=== PATIENT | male | born 1990 | race African-American/Black ===

== ENCOUNTER 2024-04-06 08:01 | Observation (INO) | payer OTHER, SELFPAY ==
[2024-04-06] VITALS (16 sets, daily range): BP systolic 124–142; BP diastolic 74–91; PULSE 62–89; RESP 12–18; TEMP 36.1–37.2; O2SAT 95–98; BMI 33.2; BMI 34.7
--- NOTE | 2024-04-06 08:16 | ED.GENADULT ---
HPI - General Adult General Time Seen by Provider: 08:16 Date Seen: 04/06/24 Chief complaint: Sore Throat Stated complaint: Sore swollen throat Time Seen by Provider: 04/06/24 08:16 Source: patient, RN notes reviewed and old records reviewed Mode of arrival: ambulatory Limitations: no limitations History of Present Illness HPI narrative: This 33-year-old male is coming into the ER with concern worsening sore throat with a history of prior peritonsillar abscess requiring drainage. He started with a sore throat on Wednesday, his throat continues to worsen with pain. He has noted no fevers or chills, no night sweats. No other respiratory symptoms with this. His right side is worse than his left now. It is hurting to swallow. He last ate last night. He denies any chronic health history, states he is otherwise healthy. He is a nonsmoker. No known ill contacts. He has tolerated anesthesia before, no family history of anesthesia complications. He has been using ibuprofen and Tylenol for management of his symptoms. In review of our old records, he went to surgery on 03/24/[address] Fenton for right peritonsillar abscess. He also was subsequently you worked up for obstructive sleep apnea, was determined to be mild and they opted with dental appliance trial. Patient does note that Dr. Fenton did talk to him about tonsillectomy, he just never followed up. Related Data Home Medications ?Medication ?Instructions ?Recorded ?Confirmed No Known Home Medications 04/06/24 04/06/24 Allergies Allergy/AdvReac Type Severity Reaction Status Date / Time No Known Drug Allergies Allergy Verified 04/06/24 08:07 Review of Systems Status of ROS: Reports: 6 or more systems reviewed and unremarkable except as noted in History and below [facility] Social History What is your current living situation?: I presently have a place to live Problems where you live: no known problems Problems where you live details: N/A In the past 12 months, utilities in danger of being shut off: no In past 12 months, lack of transportation kept you from medical appts, meetings, work, or getting things needed for daily living: no In the past 12 mos, have been you worried that your food would run out before you had money to buy more?: never true In the past 12 mos, the food you bought just didn't last and you didn't have money to buy more?: never true Smoking Status: Never smoker How often do you have a drink containing alcohol: never AUDIT-C Alcohol total score: 0 Non-prescribed substance use: denies use How often does anyone, including family, friends and others, physically hurt you: never How often does anyone, including family, friends and others, insult or talk down to you: never How often does anyone, including family, friends and others, threaten you with harm: never How often does anyone, including family, friends and others, scream or curse at you: never Exam Const: Vital Signs, click to edit/add: Vital Signs - 24 hr 04/06/24 08:07 04/06/24 08:30 04/06/24 08:32 Temperature 96.9 F L Pulse Rate 80 Pulse Rate [Pulse Oximeter] 81 Respiratory Rate 14 14 Blood Pressure Blood Pressure [Ri ght Upper Arm] 142/85 H Pulse Oximetry 98 98 98 Oxygen Delivery Me thod Room Air 04/06/24 10:00 04/06/24 11:00 04/06/24 11:39 Temperature Pulse Rate 75 71 66 Pulse Rate [Pulse Oximeter] Respiratory Rate 16 12 12 Blood Pressure 136/87 Blood Pressure [Ri ght Upper Arm] Pulse Oximetry 98 96 97 Oxygen Delivery Me thod 04/06/24 12:03 04/06/24 12:33 04/06/24 13:02 Temperature 99.0 F Pulse Rate 65 62 62 Pulse Rate [Pulse Oximeter] Respiratory Rate 14 14 14 Blood Pressure 127/74 133/80 124/79 Blood Pressure [Ri ght Upper Arm] Pulse Oximetry 98 98 96 Oxygen Delivery Me thod Room Air This 33-year-old male is alert, interactive, no apparent distress. Breathing easily on room air, do not hear any concerning changes to his breathing. Speech is normal, not hoarse. Pupils are equal round reactive, sclera clear. Left TM canal normal. Right tympanic membrane has some scarring inferiorly but otherwise appears normal, neither have any evidence of infection. Symmetrical facial function without swelling, anterior nares normal. Is able to open his mouth but is obviously painful. His tonsils and posterior pharynx are erythematous 2 to 3+ right tonsil, about 2+ left tonsil, can see some exudate on the right it base more posteriorly, both are erythematous. Still has good oral airway. Tongue in oral mucosa otherwise without any concerning change. Neck is supple, does seem to have some adenopathy but he is not tender. Lungs are clear, good air entry, no wheezing or crackles. CV regular rate and rhythm no murmur. Documenting provider has reviewed patient's vital signs: yes Course Course ED Course: This 33-year-old male is coming in with progressively worsening sore throat, right side is hurting worse. Certainly recurrent right peritonsillar abscess needs to be ruled out. He most definitely has tonsillitis. Will get CT of his neck and appropriate labs. He will be monitored here. Have discussed with him that if there is not a significant abscess, sometimes can be managed clinically with IV antibiotics and hospital observation. There is significant abscess, may need OR incision and drainage again. Will look at strep, triple viral swab as well as Monospot as part of our labs. Reevaluation(s) Time of Reevaluation #1: 08:53 Reevaluation #1: Patient's significant other requested ice chips as the patient hasn't been drinking due to symptoms, went to see how his pain was but he is in CT. Reviewed that we needed to be NPO for now, will order IV fluids, first dose of IV antibiotics will be given if viral swab is negative. Time of Reevaluation #2: 09:39 Reevaluation #2: Did review situation with patient. He is going to need IV antibiotics in observation for airway status. He has been given a dose of steroids as well to help with swelling. Have reviewed his strep is positive. He has tonsillitis and an early right peritonsillar abscess which is small and not surgically amenable to drainage at this time. We are unfortunately closed to admissions at this time because of nursing staff shortage due to illness. We are awaiting to talk to our transfer and pumphouse operator to see what will be happening. In the meantime, patient can have ice chips or clears, will also keep him on maintenance IV fluids. Consultations Consultation #1: Reviewed with Dr. Fenton. He did review the images, there is parapharyngeal fat stranding but rather small abscess. He thinks this patient needs to be admitted for IV antibiotics in observation. Not surgical at this point but certainly could become surgical. Also need to monitor his airway. He is aware of given Unasyn, did recommend dose of dexamethasone and 10 mg IV dexamethasone was subsequently ordered. Time: 09:21 Consultation #2: Have spoken with the hospitalist Dr. Bean. With discharges and further arrangements, at this time it is looking like patient will be able to be accommodated here. He will be held in the ER until he can be transferred to the floor. He is currently stable. Time: 10:30 Vital Signs Vital signs: Initial Vital Signs Temperature 96.9 F L 04/06/24 08:07 Temperature Source Temporal Artery Scan 04/06/24 08:07 Pulse Rate 81 04/06/24 08:07 Pulse Rhythm Regular 04/06/24 08:07 Respiratory Rate 14 04/06/24 08:07 Blood Pressure 142/85 H 04/06/24 08:07 Blood Pressure Mean 104 04/06/24 08:07 Blood Pressure Position Sitting 04/06/24 08:07 Pulse Oximetry 98 04/06/24 08:07 Oxygen Delivery Method Room Air 04/06/24 08:07 Vital Signs Temperature 96.9 F L 04/06/24 08:07 Pulse Rate 81 04/06/24 08:07 Respiratory Rate 14 04/06/24 08:07 Blood Pressure 142/85 H 04/06/24 08:07 Pulse Oximetry 98 04/06/24 08:07 Oxygen Delivery Method Room Air 04/06/24 08:07 Temperature 98.2 F 04/06/24 13:32 Pulse Rate 73 04/06/24 13:32 Respiratory Rate 16 04/06/24 13:32 Blood Pressure 131/88 04/06/24 13:32 Pulse Oximetry 97 04/06/24 13:32 Oxygen Delivery Method Room Air 04/06/24 13:32 Medications Administered Medications: Generic Name Dose Route Start Last Admin Trade Name Freq PRN Reason Stop Dose Admin Lactated Ringer's 1,000 mls @ 125 mls/hr 04/06/24 09:40 04/06/24 11:30 Lactated Ringers 1000 Ml IV 125 mls/hr .Q8H JUANA Administration Discontinued Medications Generic Name Dose Route Start Last Admin Trade Name Freq PRN Reason Stop Dose Admin Dexamethasone 10 mg 04/06/24 09:22 04/06/24 09:29 Dexamethasone 10 Mg/Ml Inj IVP 04/06/24 09:23 10 mg ONCE ONE Administration Sodium Chloride 1,000 mls @ 1,000 mls/hr 04/06/24 08:53 04/06/24 11:15 0.9 % Sodium Chloride 1000 Ml IV 04/06/24 09:52 Infused .Q1H JUANA Infusion Ampicillin Sodium/Sulbactam 100 mls @ 200 mls/hr 04/06/24 11:18 04/06/24 12:00 Sodium 3 gm/ Sodium Chloride IVPB 04/06/24 11:19 Infused ONCE ONE Infusion Morphine Sulfate 4 mg 04/06/24 09:14 04/06/24 09:23 Morphine 4 Mg/Ml Inj IVP 04/06/24 09:15 4 mg ONCE ONE Administration Ondansetron HCl 4 mg 04/06/24 09:14 04/06/24 09:23 Ondansetron 2 Mg/Ml Inj IVP 04/06/24 09:15 4 mg ONCE ONE Administration Medical Decision Making Lab Data Lab results reviewed: Yes I reviewed the patient's lab results Labs: Lab Results 04/06/24 04/06/24 Range/Units 08:30 08:32 WBC 10.73 (4.50-11.00) K/uL RBC 5.22 (4.30-5.90) m/uL Hgb 14.3 (13.5-17.5) gm/dL Hct 42.7 (37.0-53.0) % MCV 82 (80-100) fL MCH 27 (26-34) pg MCHC 34 (32-36) gm/dL RDW Coeff of Gurjit 12.7 (11.5-15.5) % Plt Count 231 (140-440) K/uL Neut % (Auto) 72.6 H (42.0-72.0) % Lymph % (Auto) 11.4 L (20-44) % [place] % (Auto) 13.3 H (0.0-11.0) % Eos % (Auto) 2.0 (0.0-7.0) % Baso % (Auto) 0.5 (0.0-3.0) % Neut # (Auto) 7.80 H (1.7-7.0) K/uL Lymph # (Auto) 1.20 (0.90-2.90) K/uL [place] # (Auto) 1.40 H (0.00-0.90) K/UL Eos # (Auto) 0.21 (0.00-0.50) K/uL Baso # (Auto) 0.05 (0.00-0.30) K/uL Abs Immat Gran (auto) 0.02 (0.00-0.30) K/uL Imm/Tot Granulo (auto) 0.2 % Sodium 136 (135-149) mmol/L Potassium 4.0 (3.6-5.1) mmol/L Chloride 104 (96-114) mmol/L Carbon Dioxide 27 (20-32) mmol/L Anion Gap 5 L (7-15) mEq/L BUN 11 (5-24) mg/dL Creatinine 1.1 (0.5-1.5) mg/dL Estimated Creat Clear 95.52 Estimated GFR 91 ml/min Glucose 102 (60-115) mg/dL Lactate 0.8 (0.5-1.9) mmol/L Calcium 9.1 (8.4-10.6) mg/dL Total Bilirubin 0.6 (0.1-1.5) mg/dL AST 57 H (12-35) U/L ALT 58 H (4-50) U/L Alkaline Phosphatase 105 (40-150) U/L C-Reactive Protein 4.6 H (0.5-1.0) mg/dL Total Protein 7.7 (6.0-8.3) g/dL Albumin 4.6 (3.3-5.0) g/dL SARS-CoV-2 (PCR) Negative SARS-CoV-2 (Negative) Monoscreen Negative (Negative) Influenza Type A (PCR) Negative PCR FLU A (Negative) Influenza Type B (PCR) Negative PCR FLU B (Negative) RSV (PCR) Negative PCR RSV (Negative) Group A Strep DNA DETECTED A (Not Detectd) Imaging Data CT- Other: Attestation: I have reviewed the pertinent imaging results. Radiologist's impression: Patient: ALIZA ROTHMAN Facility:?[facility] Patient ID:?[id number] Site Patient ID:?[id number]. Site :?[id number] Study:?CT-ST Neck W/ 99CC [id number] 8:54:28 AM Ordering Physician:Ruth Banegas Final Report: INDICATION: SORE THROAT R TECHNIQUE: CT of the neck with 99 ml Isovue 370 iodinated contrast agent. Coronal and sagittal reconstructions are included. COMPARISON: CT neck 03/23/2019 FINDINGS: Symmetric enlargement and striated enhancement pattern in the bilateral palatine tonsils compatible with acute tonsillitis. There is a 1.3 by 0.6 centimeter region of low attenuation in the lateral aspect of the right palatine tonsil that likely represents early abscess. There is fat stranding in the right parapharyngeal fat pad. Prominent bilateral level 2 lymph nodes likely reactive in etiology. The oral cavity, nasopharyngeal, and hypopharyngeal mucosal spaces are normal. No periapical dental disease. The supraglottic, glottic and infraglottic larynx are normal. The airway including the trachea is normal and is patent. The parotid glands, submandibular and sublingual glands are normal in appearance. The thyroid gland is normal in appearance. The vascular structures opacify normally with contrast material. Rightward deviation of the nasal septum. No suspicious lytic or blastic osseous lesions. Visualized paranasal sinuses and mastoid air cells are clear. Visualized orbital and intracranial contents are normal. Supraclavicular regions, mediastinum and soft tissues of the imaged chest wall are normal. Visualized portions of the upper lungs are clear. IMPRESSION: 1. Symmetric enlargement of the palatine tonsils compatible with acute tonsillitis. There is a 1.3 by 0.6 centimeter region of low attenuation in the lateral aspect of the right palatine tonsil that likely represents early tonsillar abscess. 2. Prominent bilateral level 2 lymph nodes likely reactive in etiology. Please note that all CT scans at this facility use dose modulation, iterative reconstruction, and/or weight-based dosing when appropriate to reduce radiation dose to as low as reasonably achievable. Dictated by Wayne Calzada MD @ 04/06/2024 9:04:23 AM (Electronic Signature) Discharge Plan Discharge Clinical Impression: Acute streptococcal tonsillitis, Recurrent peritonsillar abscess Patient Disposition: Admitted As Observation
--- NOTE | 2024-04-06 08:22 | CRLHL7_ITS ---
For Patients: As a result of the Century Cures Act, medical imaging exams and procedure reports are released immediately into your electronic medical record. You may view this report before your referring provider. If you have questions, please contact your health care provider. INDICATION: SORE THROAT R<L, HX OF ABSCESS TECHNIQUE: CT of the neck with 99 ml Isovue 370 iodinated contrast agent. Coronal and sagittal reconstructions are included. COMPARISON: CT neck 03/23/2019 FINDINGS: Symmetric enlargement and striated enhancement pattern in the bilateral palatine tonsils compatible with acute tonsillitis. There is a 1.3 by 0.6 centimeter region of low attenuation in the lateral aspect of the right palatine tonsil that likely represents early abscess. There is fat stranding in the right parapharyngeal fat pad. Prominent bilateral level 2 lymph nodes likely reactive in etiology. The oral cavity, nasopharyngeal, and hypopharyngeal mucosal spaces are normal. No periapical dental disease. The supraglottic, glottic and infraglottic larynx are normal. The airway including the trachea is normal and is patent. The parotid glands, submandibular and sublingual glands are normal in appearance. The thyroid gland is normal in appearance. The vascular structures opacify normally with contrast material. Rightward deviation of the nasal septum. No suspicious lytic or blastic osseous lesions. Visualized paranasal sinuses and mastoid air cells are clear. Visualized orbital and intracranial contents are normal. Supraclavicular regions, mediastinum and soft tissues of the imaged chest wall are normal. Visualized portions of the upper lungs are clear. IMPRESSION: 1. Symmetric enlargement of the palatine tonsils compatible with acute tonsillitis. There is a 1.3 by 0.6 centimeter region of low attenuation in the lateral aspect of the right palatine tonsil that likely represents early tonsillar abscess. 2. Prominent bilateral level 2 lymph nodes likely reactive in etiology. Please note that all CT scans at this facility use dose modulation, iterative reconstruction, and/or weight-based dosing when appropriate to reduce radiation dose to as low as reasonably achievable. Dictated by Wayne Calzada MD @ 04/06/2024 9:04:23 AM (Electronically Signed)
[2024-04-06 08:39] LABS: Lactate* 0.8 mmol/L (0.5-1.9)
[2024-04-06 08:47] LABS: Basophils Absolute Auto 0.05 K/uL (0.00-0.30); Basophils Percent Auto 0.5 % (0.0-3.0); Eosinophils Absolute Auto 0.21 K/uL (0.00-0.50); Hematocrit 42.7 % (37.0-53.0); Hemoglobin* 14.3 gm/dL (13.5-17.5); Immature Granulocytes Abs Auto 0.02 K/uL (0.00-0.30); Immature Granulocytes Pct Auto 0.2 %; Lymphocytes Percent Auto 11.4 % (20-44); Mean Corpuscular HGB Conc 34 gm/dL (32-36); Mean Corpuscular Hemoglobin 27 pg (26-34); Mean Corpuscular Volume 82 fL (80-100); Monocytes Percent Auto 13.3 % (0.0-11.0); Neutrophils Percent Auto 72.6 % (42.0-72.0); Platelet Count* 231 K/uL (140-440); RDW Coefficient of Variation % 12.7 % (11.5-15.5); Red Blood Count 5.22 m/uL (4.30-5.90); White Blood Count* 10.73 K/uL (4.50-11.00)
[2024-04-06 08:49] LABS: Mono Screen* Negative (Negative)
[2024-04-06 08:56] LABS: Slide Review Reflex No
--- OUTSIDE RECORDS SUMMARY | 2024-04-06 09:02 | XMS_ITS | Clinical Summary ---
Author Organization [facility] Address [address] [place] [address] Care Team Providers Care Gasoline Service Attendant Name Role Phone Found, No Pcp MD Primary Care Provider Unavailab le Source Comments You are receiving this document as you are listed as the primary care provider,follow-up provider, or the patient has been referred to you for consultation.This is in compliance with the Medicare and[facility] E[facility] Incentive Program,which states Providers who transition their patient to another setting of careor provider of care or refers their patient to another provider of care shouldprovide summary care record for each transition of care or referral. [facility] Allergies No known active allergies Social History Tobacco Use Types Packs/Day Years Used Date Smoking Tobacco: Never Assessed Sex and Gender Information Value Date Recorded Sex Assigned at Not on file Gender Identity Not on file Sexual Orientation Not on file Last Filed Vital Signs Vital Sign Reading Time Taken Comments Blood Pressure 149/86 09/27/2020 3:15 PM TIRE CENTER SUPERVISOR Pulse 83 09/27/2020 3:15 PM TIRE CENTER SUPERVISOR Temperature 36.9 ??C (98.4 ??F) 09/27/2020 3:15 PM CS T Respiratory Rate 16 09/27/2020 3:15 PM TIRE CENTER SUPERVISOR Oxygen Saturation 99% 09/27/2020 3:15 PM TIRE CENTER SUPERVISOR Inhaled Oxygen Concentration - - Weight - - Height - - Body Mass Index - - Plan of Treatment Health Maintenance Due Date Last Done Comments Hep C Screening (Preventive Services) 1990 MTM Covered 1990 HIV Screening (Preventive Services) 2006 Adult Preventive Visit 2008 DTaP/Tdap/Td (1 - Tdap) 2009 HepB (1) 2009 COVID-19 Vaccine (2023-2 5 season) 2024 Influenza (#1) 2024 Zoster/Shingles (1 of 2) 2040 HPV Vaccine Aged Out No longer eligi ble based on patient's age to complete this topic HepA Aged Out No longer eligi ble based on patient's age to complete this topic Hib Aged Out No longer eligi ble based on patient's age to complete this topic IPV (Polio) Aged Out No longer eligi ble based on patient's age to complete this topic MCV4 Aged Out No longer eligi ble based on patient's age to complete this topic Pneumococcal Aged Out No longer eligi ble based on patient's age to complete this topic Care Teams Gasoline Service Attendant Relationship Specialty Start Date End Date Found, No Pcp, [address] [place] [address] PCP - General 09/27/20
--- OUTSIDE RECORDS SUMMARY | 2024-04-06 09:02 | XMS_ITS | Clinical Summary ---
Author Organization [facility] Address [place], [place] [address] Care Team Providers Care Hydraulic Miner Blasting Name Role Phone Clinic, No Pcp Or Primary Care Provider Unavaila ble Allergies No known active allergies Medications No known medications Immunizations Name Administration Dates Next Due Influenza, IIV4 05/27/2020,06/03/2019,05/13/2017 Tdap 05/27/2020 Family History Medical History Relation Name Comments Good Health Father Good Health Mother Relation Name Status Comments Father Mother Social History Tobacco Use Types Packs/Day Years Used Date Smoking Tobacco: Never Smokeless Tobacco: Never Alcohol Use Standard Drinks/Week Comments Yes 0 (1 standard drink = 0.6 oz pur e alcohol) occ PHQ-2 Answer Date Recorded PHQ-2 TOTAL SCORE 0 05/27/2020 Social Connections Answer Date Recorded Frequency of Communication with Friends and Fami ly Not on file 07/19/2021 Financial Resource Strain Answer Date R ecorded Difficulty of Paying Living Expenses Not on file 07/19/2021 Difficulty of Paying Living Expenses Not on file 07/19/2021 Sex and Gender Information Value Date Recorded Sex Assigned at Not on file Gender Identity Not on file Sexual Orientation Not on file Obstetrics History Last Filed Vital Signs Vital Sign Reading Time Taken Comments Blood Pressure 127/87 05/27/2020 12:45 PM BILLING CONTROL CLERK Pulse 81 05/27/2020 12:45 PM BILLING CONTROL CLERK Temperature 36.9 ??C (98.4 ??F) 05/27/2020 1:06 PM CS T Respiratory Rate 16 03/16/2016 3:52 PM CDT Oxygen Saturation 98% 05/27/2020 12:45 PM BILLING CONTROL CLERK Inhaled Oxygen Concentration - - Weight 99.5 kg (219 lb 4.8 oz) 05/27/2020 12:45 PM BILLING CONTROL CLERK Height 179.1 cm (5' 10.5) 05/27/2020 12:[address] Body Mass Index 31.02 05/27/2020 12:45 PM BILLING CONTROL CLERK Plan of Treatment Health Maintenance Due Date Last Done Comments HIV for age 15-65 2005 Hepatitis C screening for ag e 18-79 2008 BMI (ht and wt on same day) for age 18+ 05/27/2021 05/27/2020, 03/16/2016 Depression screening for age 12+ 05/27/2021 05/27/2020 COVID-19 vaccine series (2022- season) 2024 09/17/2020 Influenza for age 9-49 03/19/2024 0, 06/03/2019, 05/13/2017 Tetanus booster 05/27/2030 05/27/2020 Tdap Completed 05/27/2020 Pneumococcal series for age 6-64 Aged Out No longer eligible b ased on patient's age to complete this topic Care Teams Hydraulic Miner Blasting Relationship Specialty Start Date End Date Clinic, No Pcp Or . PCP - General 05/27/20
[2024-04-06 09:04] LABS: Chloride* 104 mmol/L (96-114); Sodium* 136 mmol/L (135-149)
[2024-04-06] MEDS: 0.9 % SODIUM CHLORIDE 1000 ml 1,000 ML IV (09:04)
[2024-04-06 09:05] LABS: Albumin* 4.6 g/dL (3.3-5.0)
[2024-04-06 09:08] LABS: Alkaline Phosphatase* 105 U/L (40-150); Anion Gap 5 mEq/L (7-15); Aspartate Amino Transferase* 57 U/L (12-35); Bilirubin Total* 0.6 mg/dL (0.1-1.5); Carbon Dioxide* 27 mmol/L (20-32); Creatinine* 1.1 mg/dL (0.5-1.5); Est. Creatinine Clearance* 95.52; Estimated Glomerular Filt Rate 91 ml/min; Total Protein* 7.7 g/dL (6.0-8.3)
[2024-04-06 09:09] LABS: Alanine Aminotransferase* 58 U/L (4-50); Blood Urea Nitrogen* 11 mg/dL (5-24); Calcium* 9.1 mg/dL (8.4-10.6); Glucose* 102 mg/dL (60-115)
[2024-04-06 09:11] LABS: C Reactive Protein* 4.6 mg/dL (0.5-1.0)
[2024-04-06 09:18] LABS: Strep A DNA Probe* DETECTED (Not Detectd)
[2024-04-06] MEDS: MORPHINE 4 MG/ML INJ IVP (09:23)
[2024-04-06] MEDS: ONDANSETRON 2 MG/ML inj 4 MG IVP (09:23)
[2024-04-06] MEDS: dexAMETHasone 10 MG/ML inj IVP (09:29)
[2024-04-06 09:34] LABS: PCR FLU A Negative PCR FLU A (Negative); PCR FLU B Negative PCR FLU B (Negative); PCR RSV Negative PCR RSV (Negative); SARS PCR* Negative SARS-CoV-2 (Negative)
[2024-04-06] MEDS: LACTATED RINGERS 1000 ML 1,000 ML 125 ML IV ×2 (11:30→19:51)
[2024-04-06] MEDS: AMPICILLIN/SULBACTAM 3 GM in 0.9 % SODIUM CHLORIDE Mini-bag 100 ML IVPB ×3 (11:30→23:17)
--- NOTE | 2024-04-06 15:21 | PM.IMHP1 ---
Hospitalist- H&P: HPI History of Present Illness Date Seen: 04/06/24 Chief complaint: Sore swollen throat Narrative: Andrea Levy is a 33 year old male with a 5 day history of worsening right-sided sore throat. Prior to this he was previously healthy. No known ill exposures. He has not had a fever. No other respiratory illness including cough or congestion. Pain is bad enough he is now having difficulty swallowing. No difficulty with breathing. He reports about 4 years ago he had peritonsillar abscess requiring surgical drainage by Dr. Fenton. No problems in the intervening time. Review of Systems Narrative: Reports no other health problems other than his worsening sore throat. [facility] Surgical History (Updated 04/06/24 @ 15:23 by Aldair Bean MD) H/O peritonsillar abscess drainage ?Z98.890 - Other specified postprocedural states (ICD-10) H/O arthroscopy of right knee ?Z98.890 - Other specified postprocedural states (ICD-10) Social History (Updated 04/06/24 @ 15:25 by Aldair Bean MD) Narrative: He is here with his . He lives in [facility]. He works as a [employer]. He does not smoke. He occasionally drinks alcohol, 1 or 2 drinks on weekends. No recreational drug use What is your current living situation?: I presently have a place to live Problems where you live: no known problems Problems where you live details: N/A In the past 12 months, utilities in danger of being shut off: no In past 12 months, lack of transportation kept you from medical appts, meetings, work, or getting things needed for daily living: no In the past 12 mos, have been you worried that your food would run out before you had money to buy more?: never true In the past 12 mos, the food you bought just didn't last and you didn't have money to buy more?: never true Smoking Status: Never smoker How often do you have a drink containing alcohol: never AUDIT-C Alcohol total score: 0 Non-prescribed substance use: denies use How often does anyone, including family, friends and others, physically hurt you: never How often does anyone, including family, friends and others, insult or talk down to you: never How often does anyone, including family, friends and others, threaten you with harm: never How often does anyone, including family, friends and others, scream or curse at you: never Meds Home Medications and Allergies Home Medications ?Medication ?Instructions ?Recorded ?Confirmed ?Type multivitamin (Daily Multi-Vitamin 1 tab PO DAILY 04/06/24 04/06/24 History tablet) Allergies Allergy/AdvReac Type Severity Reaction Status Date / Time No Known Drug Allergies Allergy Verified 04/06/24 08:07 Exam Narrative: Exam Narrative: He is alert and appears in no distress. Voice is normal. There is no stridor. Oropharynx with moderately prominent right tonsillar swelling, erythema and exudate. Minimal erythema and swelling on the left. Adequate airway. Neck is supple with right anterior node tenderness but no significant adenopathy. No stridor. Respirations are clear to auscultation. Cardiovascular: S1, S2, regular rate and rhythm. Abdomen is soft without tenderness or mass. Skin is without rash. Intact peripheral pulses. No edema. Good peripheral perfusion. Const: Vital Signs, click to edit/add: Vital Signs - 24 hr 04/06/24 08:07 04/06/24 08:30 04/06/24 08:32 Temperature 96.9 F L Pulse Rate 80 Pulse Rate [Pulse Oximeter] 81 Pulse Rate [Right Radial] Respiratory Rate 14 14 Blood Pressure Blood Pressure [Ri ght Arm] Blood Pressure [Ri ght Upper Arm] 142/85 H Pulse Oximetry 98 98 98 Oxygen Delivery Me thod Room Air 04/06/24 10:00 04/06/24 11:00 04/06/24 11:39 Temperature Pulse Rate 75 71 66 Pulse Rate [Pulse Oximeter] Pulse Rate [Right Radial] Respiratory Rate 16 12 12 Blood Pressure 136/87 Blood Pressure [Ri ght Arm] Blood Pressure [Ri ght Upper Arm] Pulse Oximetry 98 96 97 Oxygen Delivery Me thod 04/06/24 12:03 04/06/24 12:33 04/06/24 13:02 Temperature 99.0 F Pulse Rate 65 62 62 Pulse Rate [Pulse Oximeter] Pulse Rate [Right Radial] Respiratory Rate 14 14 14 Blood Pressure 127/74 133/80 124/79 Blood Pressure [Ri ght Arm] Blood Pressure [Ri ght Upper Arm] Pulse Oximetry 98 98 96 Oxygen Delivery Me thod Room Air 04/06/24 13:30 04/06/24 13:32 Temperature 99.0 F 98.2 F Pulse Rate Pulse Rate [Pulse Oximeter] 81 Pulse Rate [Right Radial] 73 Respiratory Rate 14 16 Blood Pressure Blood Pressure [Ri ght Arm] 131/88 Blood Pressure [Ri ght Upper Arm] 142/85 H Pulse Oximetry 97 Oxygen Delivery Me thod Room Air Documenting provider has reviewed patient's vital signs: yes Hospitalist - H&P: Result Labs Labs: Short CBC 04/06/24 Range/Units 08:32 WBC 10.73 (4.50-11.00) K/uL Hgb 14.3 (13.5-17.5) gm/dL Hct 42.7 (37.0-53.0) % Plt Count 231 (140-440) K/uL BMP 04/06/24 08:32 Sodium 136 Potassium 4.0 Chloride 104 Carbon Dioxide 27 BUN 11 Creatinine 1.1 Glucose 102 Calcium 9.1 Liver Function 04/06/24 Range/Units 08:32 Total Bilirubin 0.6 (0.1-1.5) mg/dL AST 57 H (12-35) U/L ALT 58 H (4-50) U/L Alkaline Phosphatase 105 (40-150) U/L Albumin 4.6 (3.3-5.0) g/dL Assessment and Plan Assessment and plan (1) Recurrent peritonsillar abscess: Problem comment: Medical management with IV antibiotics and pain medication. Surgical intervention if getting worse Status: Acute (2) Acute streptococcal tonsillitis: Problem comment: Antibiotics Status: Acute Plan Patient is admitted the hospital for IV antibiotics and monitoring of peritonsillar abscess. If clinically improving will discharge with medical management. If getting worse will consult surgery for surgical intervention Total Time Spent Total Time Spent: Total time spent today is 60 minutes in evaluation and management
[2024-04-06] MEDS: IBUPROFEN 100 MG/5 ML SUSP 600 MG PO (16:05)
--- NOTE | 2024-04-06 21:37 | PC.NURSE ---
End of Shift ([id number]) Patient pleasant and cooperative, A&O. VSS, afebrile. Patient reports pain in his throat this shift managed with PRN medication, see MAR. Declined dinner this evening. Up independently in room.
[2024-04-07 03:00] VITALS: BP 122/69; PULSE 63; RESP 18; TEMP 36.3; O2SAT 97
[2024-04-07] MEDS: LACTATED RINGERS 1000 ML 1,000 ML 125 ML IV (03:47)
[2024-04-07] MEDS: AMPICILLIN/SULBACTAM 3 GM in 0.9 % SODIUM CHLORIDE Mini-bag 100 ML IVPB ×2 (05:29→11:17)
--- NOTE | 2024-04-07 06:34 | PC.NURSE ---
End of shift [id number]: Pt has been A&O, afebrile and VSS overnight. Denies having any pain, nausea or lightheadedness. PIV in left AC infusing LR @ 125 mL/hr along with scheduled IV abx. Pt is tolerating full liquid diet. Right side oropharynx erythematous & edematous. He is up ad natalee independently in the room with a steady gait. He slept well in between cares. ?
[2024-04-07 07:45] VITALS: BP 126/81; PULSE 73; PULSE 79; RESP 18; TEMP 37.1; O2SAT 96
[2024-04-07 11:04] VITALS: BP 127/87; PULSE 76; RESP 18; TEMP 37.3; O2SAT 96
--- NOTE | 2024-04-07 12:37 | PC.NURSE ---
Discharge. pt has been very pleasant. no pain but he has some Throat discomfort. Pt has been A&Ox4 IV is in the left AC, LR @ 125 ml full liquid diet was advanced to a regular diet and tolerated it well, . e is up ad natalee independently. went over discharge with pt and . went over medication, appointment, instructions and education/ SL was d/c intact. he left with all belongings and paperwork. he walked out.
--- NOTE | 2024-04-07 13:48 | P.DS_ITS ---
DS: Providers Provider Date Seen: 04/07/24 Date of admission: 04/06/24 13:22 Primary care physician: Not a Local Provider Admitting Clinician: Aldair Bean MD Attending Physician on discharge: Aldair Bean MD Date of Discharge: 04/07/24 DS: Diagnosis Discharge Diagnosis (1) Recurrent peritonsillar abscess: Status: Acute Problem details: Medical management with IV Unasyn and pain medication. Surgical intervention if getting worse. Much better on day of discharge. Discharged on Augmentin (2) Acute streptococcal tonsillitis: Status: Acute Problem details: Antibiotics DS: Summary Hospital Course Hospital Course: Andrea Levy is a 33 year old male with a 5 day history of worsening right- sided sore throat. Prior to this he was previously healthy. No known ill exposures. He has not had a fever. No other respiratory illness including cough or congestion. Pain is bad enough he is now having difficulty swallowing. No difficulty with breathing. He reports about 4 years ago he had peritonsillar abscess requiring surgical drainage by Dr. Fenton. No problems in the intervening time. 04/07/2024: Patient feels much better today. He reports minimal discomfort with swallowing. No trouble breathing. He slept well. He ate a regular breakfast without significant trouble. No fever Time Spent with Patient Time attestation: Total time spent providing and/or coordinating discharge services: 35 minutes Time spent: Greater than 30 minutes Exam Narrative: Exam Narrative: He is alert and appears in no distress. Speech is normal. Neck is supple. He has minimal tenderness in the anterior cervical chain below the angle of mandible. No marked swelling or adenopathy. No stridor. Oropharynx without trismus. He still has moderate swelling of the right tonsil but less exudate and erythema. Const: Vital Signs, click to edit/add: Vital Signs - 24 hr 04/06/24 15:43 04/06/24 15:46 04/06/24 15:48 Temperature 98.5 F Pulse Rate [Pulse Oximeter] 75 75 Pulse Rate [Right Radial] Respiratory Rate 18 18 18 Blood Pressure [Ri ght Arm] 127/79 Pulse Oximetry 95 95 Oxygen Delivery Me thod Room Air Room Air 04/06/24 20:11 04/06/24 23:54 04/06/24 23:54 Temperature 98.2 F 98.2 F Pulse Rate [Pulse Oximeter] 89 74 74 Pulse Rate [Right Radial] Respiratory Rate 18 18 18 Blood Pressure [Ri ght Arm] 140/82 H 139/91 H Pulse Oximetry 95 96 Oxygen Delivery Me thod Room Air Room Air 04/07/24 03:00 04/07/24 07:45 04/07/24 07:45 Temperature 97.3 F L 98.7 F Pulse Rate [Pulse Oximeter] 63 79 79 Pulse Rate [Right Radial] 73 Respiratory Rate 18 18 18 Blood Pressure [Ri ght Arm] 122/69 126/81 Pulse Oximetry 97 96 Oxygen Delivery Me thod Room Air Room Air 04/07/24 11:04 Temperature 99.2 F Pulse Rate [Pulse Oximeter] 76 Pulse Rate [Right Radial] 76 Respiratory Rate 18 Blood Pressure [Ri ght Arm] 127/87 Pulse Oximetry 96 Oxygen Delivery Me thod Room Air Documenting provider has reviewed patient's vital signs: yes DS: Data Imaging CT soft tissue neck: Radiologist's impression: INDICATION: SORE THROAT R<L, HX OF ABSCESS TECHNIQUE: CT of the neck with 99 ml Isovue 370 iodinated contrast agent. Coronal and sagittal reconstructions are included. COMPARISON: CT neck 03/23/2019 FINDINGS: Symmetric enlargement and striated enhancement pattern in the bilateral palatine tonsils compatible with acute tonsillitis. There is a 1.3 by 0.6 centimeter region of low attenuation in the lateral aspect of the right palatine tonsil that likely represents early abscess. There is fat stranding in the right parapharyngeal fat pad. Prominent bilateral level 2 lymph nodes likely reactive in etiology. The oral cavity, nasopharyngeal, and hypopharyngeal mucosal spaces are normal. No periapical dental disease. The supraglottic, glottic and infraglottic larynx are normal. The airway including the trachea is normal and is patent. The parotid glands, submandibular and sublingual glands are normal in appearance. The thyroid gland is normal in appearance. The vascular structures opacify normally with contrast material. Rightward deviation of the nasal septum. No suspicious lytic or blastic osseous lesions. Visualized paranasal sinuses and mastoid air cells are clear. Visualized orbital and intracranial contents are normal. Supraclavicular regions, mediastinum and soft tissues of the imaged chest wall are normal. Visualized portions of the upper lungs are clear. IMPRESSION: 1. Symmetric enlargement of the palatine tonsils compatible with acute tonsillitis. There is a 1.3 by 0.6 centimeter region of low attenuation in the lateral aspect of the right palatine tonsil that likely represents early tonsillar abscess. 2. Prominent bilateral level 2 lymph nodes likely reactive in etiology. Discharge Plan Discharge Disposition: Home, Self-Care Date of Admission: 04/06/24 13:22 Attending Provider on Discharge: Aldair Bean Primary Care Provider: Provider,Not a Local Condition: Improved Anticipated Discharge Date/Time: 04/07/24 12:00 Discharge Medications: New amoxicillin-pot clavulanate 875-125 mg tablet 1 tab PO BID Qty: 18 0RF Continued multivitamin [Daily Multi-Vitamin] Tablet 1 tab PO DAILY Discharge Orders: Discharge Order (Routine); Ordered 04/07/24 Ordered By: Aldair Bean Patient Education: Amoxicillin/Clavulanate Potassium (By mouth), Tonsillitis (DC) Additional Instructions: If you are getting worse with increased pain, trouble swallowing or fever, return to the emergency room for re-evaluation Activity Level: Activity as Tolerated Discharge Diet: Regular Follow Up Appointments: Provider,Not a Local [Primary Care Provider] - Forms: [employer] Info Instructions
== END 2024-04-07 12:07 | disposition home or self-care (01) ==
LOC: ED 10:31 → MEDSURG 13:27
PROVIDERS: Admitting Provider Family Medicine; Emergency Provider Family Medicine; Visit Provider Family Medicine
DX: J36 Peritonsillar abscess (principal)
CPT/HCPCS: 36415; 36430; 70491; 80053; 83605; 85025; 86140; 86308; 87631; 87651; 94761; 96361; 96365; 96366; 96375; 99284; 99285; A9270; G0378; J0295; J1100; J2270; J2405; J7030; J7120; Q9967

== ENCOUNTER 2024-06-09 10:28 | Day surgery (SDC) | payer OTHER, SELFPAY ==
[2024-06-09] VITALS (14 sets, daily range): BP systolic 132–190; BP diastolic 88–133; PULSE 61–90; RESP 13–21; TEMP 36.7–37; O2SAT 95–100; BMI 36.3
--- OUTSIDE RECORDS SUMMARY | 2024-06-09 10:32 | XMS_ITS | Data Portability ---
Author Organization [facility], [facility] Address [address] [place] [address] Care Team Providers Care [employer] Flight Mechanic Name Role Phone DAVEYBERENICE Hedrick Referring Provider [phone] Assessment Encounter Date Assessment Date Assessment LastModified by Organization Details LastModified Time 06/06/2021 06/06/2021 After a thorough discussion of the preparation, procedure details, risks, possible complications, post-operative care and instructions the patient wishes to proceed with vasectomy. He was given an opportunity to ask questions related to the above information. [email or web address] Not available 06/05/2021 09:40:09 Plan of Treatment Reminders Order Date Submit Date Provider Last Modified By Organization Details Last Modified Time Details Appointments None recorded. Lab None recorded. Referral None recorded. Procedures None recorded. Surgeries None recorded. Imaging None recorded. Medication Orders cephalexin 500 mg capsule 2020 [facility]21 [id number], [address] [place] [address], [phone], 09:56:48 Patient TargetsNo targets recorded. Patient Instructions Encounter Date Encounter Id Patient Instructions Last Modified By Organization Details Last Modified Time 06/06/2021 [id number] SURGICAL ELECTIV E STERILIZATION: VASECTOMY WHAT IS A VASECTOMY? A vasectomy makes a man sterile by obstructing the flow of sperm through the vas deferens. A small puncture in the scrotum is used to isolate a section of the vas deferens. A small portion of the vas deferens is then removed and the vas is occluded. The procedure is typically performed in the office using a local anesthesia, but can be performed at a surgery center under sedation. (Please check with your insurance carrier if you would like sedation, to make sure you qualify.) After a vasectomy it takes at least 3 months to completely clear your ejaculation of sperm. We provide you with a container for a semen analysis to prove that yourvasectomy has been successful (Note: some men have to leave multiple samples to show that their vasectomy has been successful. Please see the [facility] Post-Vasectomy Instruction Sheet for additional details). We believe that proving your sterility is your responsibility. We try to make it easy for you, but you are responsible for collecting and bringing your sample to our office. You must continue to use other forms of contraception until you prove that your vasectomy has been successful. SCHEDULING A VASECTOMY Scheduling a vasectomy is easy. It will consist of a brief office visit with a surgeon to discuss the risks of the procedure and so the surgeon can make sure that you are a good candidate for a vasectomy. Once you are medically cleared and questions are answered, another appointment is made for the actual procedure. POSSIBLE RISKS FROM HAVING A VASECTOMY 1. Recanalization: This word means spontaneous reconnection of the vas deferens and failure of the vasectomy. This complication is rare. Although it can occur at any time, even years later, it most often occurs during the first 6-8 weeks after the procedure. We can t say this enough: Patients must prove that they are sterile by providing semen samples void of sperm before discontinuing other forms of control. 2. : Believe it or not, there are patients who prove they have no sperm in their semen but still father a child. The rate of after a successful vasectomy reported in literature is 0.05% or less. 3. Infection: Uncommon, and usually mild. Most often it can be treated with antibiotics. 4. Bleeding: Usually mild, although a large blood clot called a hematoma can develop and typically resolve by itself. 5. Pain: Pain usually lasts several days and goes away. Pain that lasts months to years is rare. 6. Sperm Granuloma: This is a small scar that sometimes forms where the vas is cut and is not harmful. 7. Sperm Antibodies: These antibodies help the body get rid of the sperm. They are not harmful to you but may make it difficult to achieve if you have the vasectomy reversed. PREPARING FOR A VASECTOMY How to choose a good appointment time: Carve a few days out of your busy schedule when you can recover. Too many men try to go back to normal activities too soon. Men with desk-jobs can usually go back to work after a weekend; men who do heavy labor may want to have a full week set aside to recover. Most men won t need that sort of time, but for those who do it is nice to have. Seven days before the procedure: Stop taking aspirin, ibuprofen (Advil, Motrin), vitamin E, herbal supplements, or any medication that you take to thin the blood. If you are on Warfarin, Coumadin or Plavix, call you physician regarding these medications. Make sure you have some tight underwear or a jock strap to bring to the vasectomy appointment. Wearing supportive underwear for a few days rather than boxers helps to prevent swelling. Buy some triple antibiotic ointment (Bacitracin, Neosporin, generic) to put on the puncture sites. You won t need a big tube because the incisions are small and you only need to put it on for a few days. The day of the procedure: Eat normally unless you are being anesthetized. Please shower or wash the scrotum before the procedure to help reduce the risk of infection. Remember to bring the supportive underwear or jock strap so you can wear it home. Having someone drive you is only mandatory if you are being sedated. AFTER YOUR VASECTOMY Go home. Relax. Show this sentence to your : Plan on being lazy for at least [address] an ice pack on the scrotum (one hour on/one hour off-do not put ice directly on the skin) to minimize swelling. You may shower after 24 hours. Be careful in the shower if you are taking any new prescription medication for the vasectomy, such as narcotic pain medication. Do not lift anything over 20 pounds for seven days. After that, use your judgment. A good rule of thumb: if you are wondering if you should, you probably shouldn t . Resume normal activity slowly. Wait at least seven days before resuming sexual activity, preferably two weeks. It is normal to have discomfort with sex initially. Don t worry, that gets better quickly. It takes some men a few weeks to start feeling totally normal, so be patient. Don t worry about calling with questions if you don t think you are healing well enough; most of the time you just need a little reassurance. Issues that require a phone call are: fever above 100.5; bleeding that doesn t stop for a couple hours after the procedure; progressive scrotal swelling; incision drainage; pain that cannot be controlled with pain medication. A FINAL REMINDER You are not sterile until your semen is completely free of sperm. You must take the responsibility to bring samples into our office to prove your vasectomy is a success. If you follow the instructions above it should be. [email or web address] Not available 06/05/2021 09:40:09 Reason for Referral None Reported. Procedures Surgical History Date Name Laterality Status Provider Name and Address Organization Details Recorded Time 08/27/2021 Vasectomy cancelled Kayley Connell [place] - [facility] 08/26/2021 11:06:00 Imaging Results None recorded. Procedure Notes None recorded. Medical Equipment None Reported. Allergies No known drug allergies Medications Name Sig Start Date Stop Date Status Note LastModified by Organization Details LastModified Time neomycin-caroline ymyxin-hydro rah 3.5 mg/mL-10,000 unit/mL-1 % ear solution INSTILL 3 DROPS IN BOTH EARS THREE TIMES DAILY FOR 3 DAYS active Not Available Not Available No t Available cephalexin 500 mg capsule Take 1 capsule by oral route as directed for 1 day. active Not Available Not Available N ot Available Vitals Date Recorded Body height Body mass index (BMI) Body weight Provider Name and Address Organization Details Last Updated DateTime 06/06/2021 177.8 cm 30.8 kg/m2 49631.4755 140566 g Not Available Health Note 06/06/2021 09:28:30 Social History Question Answer Notes LastModified by Organizat ion Details LastModified Time Tobacco Smoking Status Never Smoker Not Available Health Note 06/02/2021 10:06:42 What Is Your Level Of Alcohol Consumption? Occasional [email or web address] Information not available 06/02/2021 What Is Your Level Of Caffeine Consumption? Occasional [email or web address] Information not available 06/02/2021 How Much Tobacco Do You Chew? None [email or web address] Information not available 06/02/2021 Do You Or Have You Ever Used E-cigarettes Or Vape? Never Used Electronic Cigarettes [email or web address] Information not available 06/02/2021 Recreational Drug Use No [email or web address] Information not available 06/02/2021 What Was The Date Of Your Most Recent Tobacco Screening? 06/06/2021 [email or web address] Information not available 06/06/2021 Do You Or Have You Ever Used Smokeless Tobacco? Never Used Smokeless Tobacco [email or web address] Information not available 06/02/2021 Do You Or Have You Ever Used Any Other Forms Of Tobacco Or Nicotine? No [email or web address] Information not available 06/06/2021 Sex: Male Functional Status None recorded. Mental Status None recorded. Family History Nothing Reported. Medical History Condition Response Sexually Transmitted Infection N Diabetes N Bleeding Disorder N High Blood Pressure N Kidney Stones N Cancer N Lung Disease N Depression N High Cholesterol N GERD/Acid Reflux N Heart Disease N Past Encounters Encounter ID Performer Location Encounter Start Date Encounter Closed Date Diagnosis/Indication Diagnosis SNOMED-CT Code Diagnosis ICD10 Code [id number] Italo Minaya MD [facility] [address] [address] 06/06/2021 09:28:25 06/06/2021 10:15:47 Contraception care management 782831393 Z30.09 Health Concerns Section Related Observation LastModified by Organization Detai ls LastModified Time None Recorded Concern Status LastModified by Organization Details LastModified Time None Recorded Advance Directives Directive None Recorded Payers Encounter Date Sequence Insurance Name Policy Number Policy Reagan Covered Member ID Reagan Member ID Guarantor Name 06/06/2021 1 [employer] - OPEN ACCESS CHOICE (HMO) [id number] Andrea Levy [id number] Andrea Levy Notes Date Note Type Note Provider Name and Address Organization Details Recorded Time 06/06/2021 text/html The patient is h ere to discuss a vasectomy. He has children, and is certain that he and his mate do not want to conceive any more. He understands that a vasectomy is intended to be permanent. Has 4 children, marfried The patient understands that while vasectomy reversal is possible, after a vasectomy reversal is not assured. He also understands that a vasectomy reversal is almost always associated with a large, [id number] cost. He does understand that reestablishment of sperm flow through the vas deferens is extremely rare but possible and may result in an unexpected at any time after his vasectomy. Furthermore, he understands that control must be used after vasectomy is performed until He is cleared for unprotected intercourse. He has read the Vasectomy Patient Info Book provided to him and was given an opportunity to answer questions related to the procedure and post-op care. Italo Minaya MD [address] [place] [address],[address], [place], [address], [facility] 06/06/2021 09:57:29
--- OUTSIDE RECORDS SUMMARY | 2024-06-09 10:32 | XMS_ITS | Clinical Summary ---
Author Organization [facility] Address [address] [place] [address] Care Team Providers Care Inserter Operator Name Role Phone Found, No Pcp MD Primary Care Provider Unavailab le Source Comments You are receiving this document as you are listed as the primary care provider,follow-up provider, or the patient has been referred to you for consultation.This is in compliance with the Medicare and[facility],which states Providers who [...] Comments Blood Pressure 149/86 09/27/2020 3:15 PM MOLD LAMINATOR Pulse 83 09/27/2020 3:15 PM MOLD LAMINATOR Temperature 36.9 C (98.4 F) 09/27/2020 3:15 PM MOLD LAMINATOR Respiratory Rate 16 09/27/2020 3:15 PM MOLD LAMINATOR Oxygen Saturation 99% 09/27/2020 3:15 PM MOLD LAMINATOR Inhaled Oxygen Concentration - - Weight - - Height - - Body Mass Index - - Plan of Treatment Health Maintenance Due Date Last Done Comments Hep C Screening (Preventive Services) 1990 HIV Screening (Preventive Services) 2006 Adult [...] on patient's age to complete this topic Infant RSV Aged Out No longer eligi ble based on patient's age to complete this topic MCV4 Aged Out No longer eligi ble based on patient's age to complete this topic Pneumococcal Aged Out No longer eligi ble based on patient's age to complete this topic Care Teams Inserter Operator Relationship Specialty Start Date End Date Found, No Pcp, [address] [place] [address] PCP - General 09/27/20
--- OUTSIDE RECORDS SUMMARY | 2024-06-09 10:32 | XMS_ITS | Clinical Summary ---
Author Organization [facility] Address [place], [place] [address] Care Team Providers Care Curb Machine Operator Name Role Phone Clinic, No Pcp Or [...] Comments Blood Pressure 127/87 05/27/2020 12:45 PM ACLS SPECIALIST Pulse 81 05/27/2020 12:45 PM ACLS SPECIALIST Temperature 36.9 C (98.4 F) 05/27/2020 1:06 PM ACLS SPECIALIST Respiratory Rate 16 03/16/2016 3:52 PM CDT Oxygen Saturation 98% 05/27/2020 12:45 PM ACLS SPECIALIST Inhaled Oxygen Concentration - - Weight 99.5 kg (219 lb 4.8 oz) 05/27/2020 12:45 PM ACLS SPECIALIST Height 179.1 cm (5' 10.5) 05/27/2020 12:[address] Body Mass Index 31.02 05/27/2020 12:45 PM ACLS SPECIALIST Plan of Treatment Health Maintenance Due Date Last Done Comments HIV for age 15-65 2005 Hepatitis C screening for ag e 18-79 2008 BMI (ht and wt on same day) for age 18+ 05/27/2021 05/27/2020, 03/16/2016 Depression screening for age 12+ 05/27/2021 05/27/2020 COVID-19 vaccine series ( season) 2024 09/17/2020 Influenza for age 9-49 03/19/2024 0, 06/03/2019, 05/13/2017 Tetanus booster 05/27/2030 05/27/2020 Tdap Completed 05/27/2020 Pneumococcal series for age 6-64 Aged Out No longer eligible b ased on patient's age to complete this topic Care Teams Curb Machine Operator Relationship Specialty Start Date End Date Clinic, No Pcp Or . PCP - General 05/27/20
[2024-06-09] MEDS: SODIUM CHLORIDE 0.9 % (FLUSH) 10 ML SYRINGE IVF (10:55)
[2024-06-09] MEDS: 0.9 % SODIUM CHLORIDE 500 ML 500 ML 100 ML IV (10:55)
--- NOTE | 2024-06-09 12:23 | W.PM.ENTPROC ---
Procedure Note Date of procedure: 06/09/24 Procedure: Preoperative diagnosis chronic tonsillitis, tonsillar hypertrophy, upper airway obstruction, history of peritonsillar abscess Postoperative diagnosis same Procedure tonsillectomy Under general endotracheal anesthesia the patient was prepped and draped in usual fashion. The McIvor mouth gag was inserted the tongue retracted forward. No submucous cleft was noted on inspection or palpation. The right and left tonsils were removed with a combination of needlepoint cautery, bipolar cautery and suction cautery. Meticulous hemostasis was achieved. The patient was extubated in the operating room taken recovery in satisfactory condition. Blood loss was less than 50 mL. Surgeon: Moises Fenton MD
--- NOTE | 2024-06-09 12:34 | W.ANESCHARGE ---
Anesthesia Charges Start Date/Time Anesthesia Start Date: 06/09/24 Anesthesia Start Time: 11:44 Stop Date/Time Anesthesia Stop Date: 06/09/24 Anesthesia Stop Time: 12:35
[2024-06-09] MEDS: MEPERIDINE 25 MG/ML INJ 12.5 MG IVP (12:39)
--- NOTE | 2024-06-09 12:39 | W.ANESCHARGE ---
Anesthesia Charges Start Date/Time Anesthesia Start Date: 06/09/24 Anesthesia Start Time: 11:44 Stop Date/Time Anesthesia Stop Date: 06/09/24 Anesthesia Stop Time: 12:35
--- NOTE | 2024-06-09 13:07 | SUR.PHASEI ---
patient met discharge criteria per anesthesia
[2024-06-09] MEDS: IBUPROFEN 100 MG/5 ML SUSP 200 MG PO (13:15)
[2024-06-09] MEDS: ACETAMINOPHEN 160 MG/5 ML CUP 320 MG PO (13:15)
[2024-06-09] MEDS: OXYCODONE 1 MG/ML ORAL SOLN 5 MG PO (14:20)
== END 2024-06-09 14:45 | disposition home or self-care (01) ==
LOC: OR 10:30
PROVIDERS: Visit Provider Otolaryngology
PROC: (CPT 42826; principal; 2024-06-09 11:30)
DX: J35.01 Chronic tonsillitis (principal)
CPT/HCPCS: 42826; 00170; 88304; A9270; J0330; J1100; J2175; J2405; J2704; J3010; J7030